=== PATIENT | female | born 1955 | race Caucasian/White ===

== ENCOUNTER 2018-07-09 14:50 | Emergency (ER) | payer BC ==
[~2018-07-09] VITALS: Ht 170.2 cm; Wt 72.7 kg
[2018-07-09 15:00] VITALS: BP 138/87; TEMP 97.9
[2018-07-09] MEDS ORDERED: LEXAPRO20 MG PO (15:17)
[2018-07-09] MEDS ORDERED: SYNTHROID0.05 MG/TA PO (15:17)
[2018-07-09] MEDS ORDERED: NORCO 325 MG-51 TAB PO (15:40)
[2018-07-09] MEDS ORDERED: FLEXERIL 1010 MG/TAB PO (15:40)
[2018-07-09 15:46] VITALS: PULSE 69
== END 2018-07-09 15:47 | disposition home or self-care (01) ==
LOC: COL.ER 14:50
DX: S39.012A Strain of muscle, fascia and tendon of lower back, initial encounter (principal); E03.9 Hypothyroidism, unspecified; W17.81XA Fall down embankment (hill), initial encounter; Y92.828 Other wilderness area as the place of occurrence of the external cause